=== PATIENT | female | born 1995 | race Two or more races ===

== ENCOUNTER 2023-04-24 03:57 | Emergency (ER) | payer OTHER ==
[~2023-04-24] VITALS: Ht 157.5 cm; Wt 93.9 kg
[2023-04-24] MEDS ORDERED: KETO10TA2 PO (04:25)
[2023-04-25] MEDS ORDERED: AMOX-CLAV 875-1 EACH PO ×3 (03:31)
[2023-04-25] MEDS ORDERED: TRAMADOL HCL50 MG PO (03:31)
== END 2023-04-24 05:13 | disposition home or self-care (01) ==
LOC: ER 03:59
DX: K08.89 Other specified disorders of teeth and supporting structures (principal)

== ENCOUNTER 2023-04-24 20:08 | Emergency (ER) | payer OTHER ==
[~2023-04-24] VITALS: Ht 157.5 cm; Wt 93.9 kg
[~2023-04-24 20:08] MED LIST: KETO10TA2 PO
[2023-04-24 23:53] LABS: HEMATOCRIT 39.1 % (36.0-45.00); HEMOGLOBIN 13.1 g/dL (12.0-15.00); MEAN CELL VOLUME 77.2 fL (80.00-100.00); MEAN CORPUSCULAR HEMOGLOBIN 25.8 pg (27.00-32.0); MEAN CORPUSCULAR HGB CONC 33.4 g/dl (32.0-36.0); PLATELET COUNT 374 K/uL (150-450); RED BLOOD COUNT 5.06 M/uL (4.00-6.00); RED CELL DISTRIBUTION WIDTH 14.5 % (11.5-14.5)
[2023-04-25 00:17] LABS: ALBUMIN 3.6 gm/dL (3.4-5.0); ALKALINE PHOSPHATASE 65 U/L (50-136); ALT/SGPT 21 U/L (12-78); ANION GAP 12 (10.0-20.0); AST/SGOT 9 U/L (15-37); BILIRUBIN TOTAL 0.27 mg/dL (0.3-1.2); BLOOD UREA NITROGEN 13 mg/dL (7-18); BUN CREA RATIO 19 (7.0-25.0); CALCIUM 9.3 mg/dL (8.5-10.1); CARBON DIOXIDE 25 mEq/L (21-32); CHLORIDE 108 mmol/L (98-107); GFR 98.93; GLOBULINA 5.1 G/DL (2.4-3.5); GLUCOSE FASTING 127 mg/dL (65-100); OSMOLALITY SERUM 283 MOSM/KG (275-295); POTASSIUM 3.78 mEq/L (3.5-5.1); SODIUM 141 mmol/L (136-145); TOTAL PROTEIN 8.7 gm/dL (6.4-8.2)
[2023-04-25 00:20] LABS: HCG QUANTITATIVE < 1 mUI/mL (1-3)
[2023-04-25] MEDS ORDERED: TRAMADOL HCL50 MG PO (03:31)
[2023-04-25] MEDS ORDERED: AMOX-CLAV 875-1 EACH PO ×3 (03:31)
== END 2023-04-25 04:12 ==
LOC: ER 20:09
PROVIDERS: General Practice
DX: K08.89 Other specified disorders of teeth and supporting structures (principal)